=== PATIENT | male | born 1955 | race Caucasian/White ===

== ENCOUNTER 2018-12-02 17:32 | Emergency (ER) | payer SELFPAY ==
[~2018-12-02] VITALS: Ht 182.9 cm; Wt 75.0 kg
[2018-12-02 18:16] LABS: BASOPHILS % (AUTO) 0.3 % (0-1); EOSINOPHILS % (AUTO) 0 % (0-6); HEMATOCRIT 40.4 % (42.0-52.0); HEMOGLOBIN 13.6 g/dl (14.0-17.9); LYMPHOCYTES # (AUTO) 0.9 X10'3 (1.1-4.8); LYMPHOCYTES % (AUTO) 7.3 % (21-51); MEAN CORPUSCULAR HEMOGLOBIN 28.9 PG (27.0-31.0); MEAN CORPUSCULAR HGB CONC 33.7 g/dL (33.0-36.5); MEAN CORPUSCULAR VOLUME 85.9 FL (78-98); MEAN PLATELET VOLUME 7.6 FL (7.4-10.4); MONOCYTES % (AUTO) 7.4 % (2-12); PLATELET COUNT 235 X10'3 (140-440); RED BLOOD COUNT 4.71 X10'6 (4.70-6.10); RED CELL DISTRIBUTION WIDTH 14.3 % (11.5-14.5)
[2018-12-02 18:24] LABS: ALANINE AMINOTRANSFERASE 43 U/L (12-78); ALBUMIN 3.3 G/DL (3.4-5.0); ALBUMIN/GLOBULIN RATIO 0.8 (1.1-1.5); ALKALINE PHOSPHATASE 85 IU/L (46-116); ANION GAP 10 (8-16); ASPARTATE AMINO TRANSFERASE 39 U/L (10-37); BILIRUBIN,TOTAL 1.3 MG/DL (0.1-1.0); BLOOD UREA NITROGEN 12 MG/DL (7-18); BUN/CREATININE RATIO 9.3 (5.4-32.0); CALCIUM 8.8 MG/DL (8.5-10.1); CHLORIDE 96 MMOL/L (99-107); CREATININE 1.29 MG/DL (0.60-1.10); GLUCOSE 111 MG/DL (70-104); POTASSIUM 3.7 MMOL/L (3.5-5.1); SODIUM 130 MMOL/L (135-145); TOTAL CARBON DIOXIDE 24.4 MMOL/L (24-32); TOTAL PROTEIN 7.2 G/DL (6.4-8.2); eGFR 56 ML/MIN
[2018-12-02 18:26] LABS: PARTIAL THROMBOPLASTIN TIME 33 SECONDS (22-32)
[2018-12-02] MEDS ORDERED: fluconazole 100mg tablet PO ONE (21:35)
[2018-12-02] MEDS ORDERED: normal saline 1000ML IV soln IVB ONE (21:35)
[2018-12-02] MEDS ORDERED: NYST1000 PO (21:54)
[2018-12-03 00:15] LABS: HIV ANTIBODY 1&2 RAPID NON-REACTIVE (Neg)
[2018-12-03 00:42] VITALS: BP 125/79
== END 2018-12-03 01:03 | disposition home or self-care (01) ==
LOC: ER 17:33
DX: R07.89 Other chest pain (principal); B37.9 Candidiasis, unspecified; R53.1 Weakness; R42 Dizziness and giddiness; R05 Cough; F17.200 Nicotine dependence, unspecified, uncomplicated; Z79.899 Other long term (current) drug therapy
CPT/HCPCS: 36415; 71045; 80053; 84484; 85025; 85610; 85730; 86703; 93005; 96360; 99284; J7030

== ENCOUNTER 2021-09-29 11:41 | Emergency (ER) | payer MEDICAID ==
[~2021-09-29] VITALS: Ht 175.3 cm; Wt 75.0 kg
[2021-09-29 11:46] VITALS: BP 172/93
[2021-09-29] MEDS ORDERED: dexamethasone 4mg/ml inj IM ONE (17:05)
[2021-09-29] MEDS ORDERED: FAMO-128 PO (17:22)
[2021-09-29] MEDS ORDERED: DIPH28.33 TOP (17:22)
--- NOTE | 2021-09-29 17:59 | NUR ---
PT LEFT ER PRIOR TO RECEIVING AN RX FOR BENADRYL AND PEPCID. ATTEMPTED TO CALL PT, UNABLE TO LEAVE MESSAGE FOR HIM TO CALL BACK FOR HIS RX.
== END 2021-09-29 17:35 | disposition home or self-care (01) ==
LOC: ER 11:42
DX: L23.7 Allergic contact dermatitis due to plants, except food (principal); Z79.899 Other long term (current) drug therapy
CPT/HCPCS: 96372; 99283; J1100